=== PATIENT | male | born 1965 | race Caucasian/White ===

== ENCOUNTER 2023-05-04 05:40 | Day surgery (SDC) | payer OTHER ==
[~2023-05-04] VITALS: Ht 177.8 cm; Wt 79.9 kg
[2023-05-04] VITALS (10 sets, daily range): BP systolic 101–120; BP diastolic 55–68; PULSE 60–96; RESP 10–18; TEMP 97.9; O2SAT 94–98
[~2023-05-04 05:40] MED LIST: NO HOME MEDS; cefazolin 2gm/D5W 100mL 100 ML IV ONE; famotidine 20mg tablet PO ONE; oxymetazoline 15 ML nasal spray NS ONE; ringers solution, lacted 1,000 ML IV SCH; tranexamic acid inj. 1,000 MG in normal saline IV soln 100ML IV ONE
[2023-05-04] MEDS ORDERED: LIDOcaine 1% 30ml preserv. free vial ONE (06:44)
[2023-05-04] MEDS ORDERED: oxymetazoline 15 ML nasal spray NS ONE ×2 (06:45→07:00)
[2023-05-04] MEDS ORDERED: mupirocin 2% ointment 22GM ONE (06:45)
[2023-05-04] MEDS ORDERED: tranexamic acid 100mg/ml inj. ONE (06:45)
[2023-05-04] MEDS ORDERED: cocaine 4% topical solution 4ml bottle ONE (06:45)
[2023-05-04] MEDS ORDERED: epiNEPHrine 1 mg/ml inj ONE (06:45)
[2023-05-04] MEDS ORDERED: mupirocin 2% cream 15gm TP ONE (07:00)
[2023-05-04] MEDS ORDERED: cocaine 4% topical solution 4ml bottle TP ONE (07:00)
[2023-05-04] MEDS ORDERED: LIDOcaine 1% w/EPI 1:100,000 30ml vial (MDV) IJ ONE (07:00)
[2023-05-04] MEDS ORDERED: epiNEPHrine 1 mg/ml 30ml MDV SQ ONE (07:00)
[2023-05-04] MEDS ORDERED: epiNEPHrine 1 mg/ml 30ml MDV ONE (07:23)
[2023-05-04] MEDS ORDERED: fentaNYL/PF 50MCG/1 ML 2ML syringe ONE (07:56)
[2023-05-04] MEDS ORDERED: dexamethasone sod phosphate 4mg/ml inj. ONE (07:57)
[2023-05-04] MEDS ORDERED: propofol inj 20 ML IV ONE (07:57)
[2023-05-04] MEDS ORDERED: LIDOcaine 2% (20mg/ml) 5ml vial ONE (07:57)
[2023-05-04] MEDS ORDERED: midazolam 1 mg/ML 2ml injection ONE (07:57)
[2023-05-04] MEDS ORDERED: ondansetron/PF 4mg/2ml inj ONE (07:57)
[2023-05-04] MEDS ORDERED: morphine 2 MG/ML inj. syringe IV PRN (08:05)
[2023-05-04] MEDS ORDERED: hydrALAZINE 20mg/ml inj. IV PRN (08:05)
[2023-05-04] MEDS ORDERED: labetalol 20mg/4ml (5mg/ml) syringe IV PRN (08:05)
[2023-05-04] MEDS ORDERED: ringers solution, lacted 1,000 ML IV SCH (08:05)
[2023-05-04] MEDS ORDERED: morphine 4 MG/ML inj SYRINge IV PRN (08:05)
[2023-05-04] MEDS ORDERED: fentaNYL/PF 50MCG/1 ML 2ML syringe IV PRN ×2 (08:05)
[2023-05-04] MEDS ORDERED: ondansetron/PF 4mg/2ml inj IV PRN (08:05)
[2023-05-04] MEDS ORDERED: acetaminophen 1,000mg/100ml IV 100 ML IV ONE (08:53)
[2023-05-04] MEDS ORDERED: salt irrigation nasal spray 45 ML SPRAY NS PRN (10:25)
[2023-05-04] MEDS ORDERED: mupirocin 2% nasal ointment 1gm UD NS ONE (10:25)
== END 2023-05-04 11:09 | disposition home or self-care (01) ==
LOC: OR 05:40
PROVIDERS: ATTEND Otolaryngology
DX: J32.8 Other chronic sinusitis (principal); Z98.890 Other specified postprocedural states
CPT/HCPCS: 31253; 31267; 61782; 82948; A6402; C1726; C2625; J0131; J0171; J0690; J1100; J2250; J2405; J2704; J3010; J3490; J7030; J7050; J7120; Z7506; Z7508; Z7512; A4618; A6449; A7000